=== PATIENT | male | born 1965 | race Caucasian/White ===

== ENCOUNTER 2017-03-25 15:18 | Inpatient (IN) | payer OTHER ==
[~2017-03-25] VITALS: Ht 167.6 cm; Wt 103.0 kg
[2017-03-25 15:31] VITALS: BP 142/76; PULSE 123; RESP 26; TEMP 100.9; O2SAT 98
--- NOTE | 2017-03-25 15:51 | PD ---
HPI Chief Complaint: Alcohol/Drug Intoxication Time Seen by Provider: 15:50 Travel History International Travel<30 days: No Contact w/Intl Traveler<30days: No Traveled to known affect area: No History of Present Illness HPI 52-year-old male with history of narcotic and alcohol abuse presents emergency department after not being able to get into [facility]. Patient is noted to have a fever of 100.9 and tachycardia in triage. Patient states he has been binging on pills being crushed and snorting them, and alcohol. Patient is desiring to get clean from both narcotics and alcohol as he is done in the past. Patient has generalized fever, chills, body aches, nausea, and vomiting as well as diarrhea. The symptoms have been present for the past 2 days. Patient denies IV drug use. Patient has no known drug allergies. [facility] Past Medical History Cardiovascular Problems: Yes Diabetes: Yes Social History Alcohol Use: Yes Tobacco Use: Yes Substance Use: Yes Allergies-Medications (Allergen,Severity, Reaction): Coded Allergies: No Known Allergies (Verified Allergy, Unknown, 03/25/17) Review of Systems Except as stated in HPI: all other systems reviewed are Neg General / Constitutional: Positive: Fever, Chills Eyes: No: Visual changes HENT: Positive: Headaches, Lightheadedness, Rhinitis, Rhinorrhea, Congestion, Nosebleed, No: Vertigo, Sore Throat, Neck Stiffness, Neck Pain, Dental Difficulties, Earache Cardiovascular: No: Chest Pain or Discomfort Respiratory: Positive: Cough, No: Shortness of Breath, Wheezing, Sneezing Gastrointestinal: Positive: Nausea, Vomiting, Diarrhea, Abdominal Pain, Other Genitourinary: Positive: Decreased Urinary Output, No: Urgency, Frequency, Dysuria Musculoskeletal: Positive: Myalgias, No: Arthralgias, Limited ROM, Pain Skin: No Rash Neurologic: No: Weakness Psychiatric: No: Depression Endocrine: No: Polydipsia Hematologic/Lymphatic: No: Easy Bruising Physical Exam Narrative GENERAL: Patient is disheveled and dirty and in moderate distress. He appears ill. SKIN: Warm. Decreased pallor. Mild diaphoresis. Decreased turgor without tenting. HEAD: Atraumatic. Normocephalic. EYES: Pupils equal and round. No scleral icterus. No injection or drainage. ENT: No nasal bleeding or discharge. Mucous membranes pink and moist. Pharynx is clear. Airways patent. TMs are clear bilaterally. No significant sinus tenderness. Patient has dried nosebleed in the left nares. NECK: Trachea midline. Supple and nontender without significant lymphadenopathy. CARDIOVASCULAR: Tachycardic rate and rhythm. RESPIRATORY: No accessory muscle use. Clear to auscultation. Breath sounds equal bilaterally. GASTROINTESTINAL: Abdomen soft, moderate generalized tenderness, nondistended. Hepatic and splenic margins not palpable. No CVA tenderness. Hyperactive bowel sounds throughout all quadrants. There is no point tenderness or rebound. MUSCULOSKELETAL: Extremities without clubbing, cyanosis, or edema. No obvious deformities. NEUROLOGICAL: Awake and alert. No obvious cranial nerve deficits. Motor grossly within normal limits. Five out of 5 muscle strength in the arms and legs. Normal speech. PSYCHIATRIC: Appropriate mood and affect; insight and judgment normal. Data Data Last Documented VS Vital Signs Date Time Temp Pulse Resp B/P (MAP) Pulse Ox O2 Delivery O2 Flow Rate FiO2 03/25/17 16:15 Room Air 03/25/17 15:31 100.9 123 26 142/76 (98) 98 Orders Orders Sepsis Workup Initiated (03/25/17 ) Electrocardiogram (03/25/17 15:54) Complete Blood Count With Diff (03/25/17 15:54) Comprehensive Metabolic Panel (03/25/17 15:54) Act Partial Throm Time (Ptt) (03/25/17 15:54) Lactic Acid Sepsis Protocol (03/25/17 15:54) Magnesium (Mg) (03/25/17 15:54) Phosphorus (Po4) (03/25/17 15:54) Lipase (03/25/17 15:54) Ckmb (Isoenzyme) Profile (03/25/17 15:54) Troponin I (03/25/17 15:54) Urinalysis - C+S If Indicated (03/25/17 15:54) Influenzae A/B Antigen (03/25/17 15:54) Blood Culture (03/25/17 15:54) Chest, Single Ap (03/25/17 15:54) Blood Glucose (03/25/17 15:54) Ecg Monitoring (03/25/17 15:54) Iv Access Insert/Monitor (03/25/17 15:54) Oximetry (03/25/17 15:54) Oxygen Administration (03/25/17 15:54) Acetaminophen (Tylenol) (03/25/17 16:00) Ondansetron Inj (Zofran Inj) (03/25/17 16:00) Sodium Chlor 0.9% 1000 Ml Inj (Ns 1000 M (03/25/17 15:54) Sodium Chlor 0.9% 1000 Ml Inj (Ns 1000 M (03/25/17 15:54) Lorazepam Inj (Ativan Inj) (03/25/17 16:15) Lorazepam Inj (Ativan Inj) (03/25/17 16:45) Oseltamivir (Tamiflu) (03/25/17 17:00) Potassium Chlor 20 Meq Premix (Kcl 20 Me (03/25/17 17:15) Sodium Chlor 0.9% 1000 Ml Inj (Ns 1000 M (03/25/17 17:15) Thyroid Stimulating Hormone (03/25/17 17:13) Psych Screen (03/25/17 17:13) Drug Screen, Random Urine (03/25/17 17:13) Alcohol (Ethanol) (03/25/17 17:13) Piperacil-Tazo 4.5 Gm Premix (Zosyn 4.5 (03/25/17 17:30) Vancomycin Inj (Vancomycin Inj) (03/25/17 17:30) Admit Order (Ed Use Only) (03/25/17 17:36) Labs Laboratory Tests Test 03/25/17 16:20 White Blood Count 4.8 TH/MM3 Red Blood Count 4.82 MIL/MM3 Hemoglobin 14.4 GM/DL Hematocrit 41.2 % Mean Corpuscular Volume 85.5 FL Mean Corpuscular Hemoglobin 29.8 PG Mean Corpuscular Hemoglobin Concent 34.8 % Red Cell Distribution Width 13.8 % Platelet Count 188 TH/MM3 Mean Platelet Volume 7.3 FL Neutrophils (%) (Auto) 65.0 % Lymphocytes (%) (Auto) 19.5 % Monocytes (%) (Auto) 14.7 % Eosinophils (%) (Auto) 0.2 % Basophils (%) (Auto) 0.6 % Neutrophils # (Auto) 3.1 TH/MM3 Lymphocytes # (Auto) 0.9 TH/MM3 Monocytes # (Auto) 0.7 TH/MM3 Eosinophils # (Auto) 0.0 TH/MM3 Basophils # (Auto) 0.0 TH/MM3 CBC Comment DIFF FINAL Differential Comment Activated Partial Thromboplast Time 24.6 SEC Urine Color YELLOW Urine Turbidity CLEAR Urine pH 6.0 Urine Specific [place] 1.017 Urine Protein 30 mg/dL Urine Glucose (UA) 150 mg/dL Urine Ketones 10 mg/dL Urine Occult Blood NEG Urine Nitrite NEG Urine Bilirubin NEG Urine Urobilinogen LESS THAN 2.0 MG/DL Urine Leukocyte Esterase NEG Urine WBC 2 /hpf Urine Squamous Epithelial Cells <1 /hpf Urine Hyaline Casts 1 /lpf Urine Mucus MOD /lpf Microscopic Urinalysis Comment CATH-CULT NOT IND Blood Urea Nitrogen 8 MG/DL Creatinine 0.90 MG/DL Random Glucose 183 MG/DL Total Protein 8.3 GM/DL Albumin 3.5 GM/DL Calcium Level 8.8 MG/DL Phosphorus Level 2.5 MG/DL Magnesium Level 1.8 MG/DL Alkaline Phosphatase 118 U/L Aspartate Amino Transf (AST/SGOT) 91 U/L Alanine Aminotransferase (ALT/SGPT) 106 U/L Total Bilirubin 0.2 MG/DL Sodium Level 137 MEQ/L Potassium Level 2.8 MEQ/L Chloride Level 99 MEQ/L Carbon Dioxide Level 23.1 MEQ/L Anion Gap 15 MEQ/L Estimat Glomerular Filtration Rate 89 ML/MIN Lactic Acid Level 4.6 mmol/L Total Creatine Kinase 85 U/L Troponin I LESS THAN 0.02 NG/ML Lipase 213 U/L [facility] Medical Decision Making Medical Screen Exam Complete: Yes Emergency Medical Condition: Yes Medical Record Reviewed: Yes Differential Diagnosis Narcotic abuse. Narcotic withdrawal. Alcohol abuse. Alcohol withdrawal. Influenza. Nausea and vomiting, diarrhea. Fever. Sepsis. Narrative Course Based on my exam the sepsis protocol was initiated. Labs ordered per protocol and 2 L of normal saline boluses given. Patient is given Zofran 4 mg IV, Lorazepam 1 mg IV, and 650 mg acetaminophen p.o. Blood cultures are ordered 2. EKG and chest x-ray or ordered as well. Urine and urine drug screen is ordered. Serum alcohol level is ordered as well. Patient is positive for influenza B. Labs showed no significant leukocytosis however monocytes are elevated. Chemistries significant for potassium of 2.8, random glucose 183, lactic acid 4.6, AST is 91, ALT is 106, alk phos 118, troponin is less than 0.02. Total protein 8.3, lipase is normal at 213. Urinalysis shows no sign of infection. Patient is given an additional 1 L of normal saline bolus as well as Tamiflu 75 mg p.o. Call was placed to the hospitalist for admission. Sepsis Criteria SIRS Criteria (2 or more): Temp > 100.9 or < 96.8, Heart rate over 90 Sepsis Criteria (SIRS+source): Infect source susp/known Criteria Outcome: Meets sepsis criteria Diagnosis Primary Impression: Sepsis Qualified Codes: A41.3 - Sepsis due to hemophilus influenzae Additional Impressions: Hypokalemia Diarrhea Qualified Codes: A09 - Infectious gastroenteritis and colitis, unspecified Influenza B Polysubstance abuse Admitting Information Admitting Physician Requests: Admit Condition: Stable Jass Ortiz Mar 25, 2017 15:51
[2017-03-25] MEDS ORDERED: SODIUM CHLOR 0.9% 1000 ML INJ 1,000 ML IV ONE ×2 (15:54→17:15)
[2017-03-25] MEDS ORDERED: SODIUM CHLOR 0.9% 1000 ML INJ 800 ML IV ONE (15:54)
[2017-03-25] MEDS ORDERED: ACETAMINOPHEN 325 MG TAB PO ONE (16:00)
[2017-03-25] MEDS ORDERED: ONDANSETRON HCL 4 MG/2 ML VIAL IV PUSH ONE (16:00)
[2017-03-25] MEDS ORDERED: LORazepam 2 MG/ML VIAL IM ONE (16:15)
--- NOTE | 2017-03-25 16:35 | RADRPT ---
EXAM DATE/TIME: 03/25/2017 16:20 [place] COMPARISON: No previous studies available for comparison. INDICATIONS : Patient states that he is detoxing from pills and has increased blood pressure and heart rate. MEDICAL HISTORY : None. SURGICAL HISTORY : None. ENCOUNTER: Initial ACUITY: 1 day PAIN SCORE: 3/10 LOCATION: Bilateral upper chest FINDINGS: A single view of the chest demonstrates the lungs to be symmetrically aerated without evidence of mas s, infiltrate or effusion. The cardiomediastinal contours are unremarkable. Osseous structures are intact. There are overlying electrocardiogram leads. CONCLUSION: No acute disease. Raphael Pearce MD on March 25, 2017 at 16:32 Board Certified Radiologist. This report was verified electronically.
[2017-03-25 16:42] LABS: AUTOMATED NEUTROPHIL # 3.1 TH/MM3 (1.8-7.7); BASOPHIL % 0.6 % (0.0-2.0); EOSINOPHIL % 0.2 % (0.0-4.0); HEMATOCRIT 41.2 % (39.0-51.0); HEMOGLOBIN 14.4 GM/DL (13.0-17.0); LYMPH % 19.5 % (9.0-44.0); LYMPHOCYTE # 0.9 TH/MM3 (1.0-4.8); MEAN CELL VOLUME 85.5 FL (80.0-100.0); MEAN CORPUSCULAR HEMOGLOBIN 29.8 PG (27.0-34.0); MEAN CORPUSCULAR HGB CONC 34.8 % (32.0-36.0); MEAN PLATELET VOLUME 7.3 FL (7.0-11.0); MONO % 14.7 % (0.0-8.0); MONOCYTE # 0.7 TH/MM3 (0-0.9); PLATELET COUNT 188 TH/MM3 (150-450); RED BLOOD COUNT 4.82 MIL/MM3 (4.50-5.90); RED CELL DISTRIBUTION WIDTH 13.8 % (11.6-17.2); WHITE BLOOD COUNT 4.8 TH/MM3 (4.0-11.0)
[2017-03-25] MEDS ORDERED: LORazepam 2 MG/ML VIAL IV PUSH ONE (16:45)
[2017-03-25 16:48] LABS: BILIRUBIN, URINE NEG (NEG); BLOOD, URINE NEG (NEG); GLUCOSE,URINE 150 mg/dL (NEG); HYALINE CAST, URINE 1 /lpf (RARE); KETONE, URINE 10 mg/dL (NEG); MUCUS URINE MOD /lpf (OCC); NITRITE,URINE NEG (NEG); SQUAMOUS EPITHELIAL CELL URINE <1 /hpf (0-5); URINE COLOR YELLOW (YELLW/STRAW); URINE LEUKOCYTE ESTERASE NEG (NEG)
[2017-03-25] MEDS ORDERED: OSELTAMIVIR PHOSPHATE 75 MG CAP PO ONE (17:00)
[2017-03-25 17:03] LABS: LACTIC ACID SEPSIS PROTOCOL 4.6 mmol/L (0.4-2.0)
[2017-03-25 17:04] LABS: ALBUMIN 3.5 GM/DL (3.4-5.0); ALKALINE PHOSPHATASE 118 U/L (45-117); ALT (GPT) 106 U/L (12-78); AST (GOT) 91 U/L (15-37); BICARBONATE 23.1 MEQ/L (21.0-32.0); BLOOD UREA NITROGEN 8 MG/DL (7-18); CALCIUM 8.8 MG/DL (8.5-10.1); CHLORIDE 99 MEQ/L (98-107); GLOMERULAR FILTRATION RATE 89 ML/MIN (>89); GLUCOSE,RANDOM 183 MG/DL (74-106); MAGNESIUM 1.8 MG/DL (1.5-2.5); PHOSPHORUS 2.5 MG/DL (2.5-4.9); SODIUM (NA) 137 MEQ/L (136-145); TOTAL BILIRUBIN ADULT 0.2 MG/DL (0.2-1.0); TOTAL PROTEIN 8.3 GM/DL (6.4-8.2); TROPONIN I LESS THAN 0.02 NG/ML (0.02-0.05)
[2017-03-25] MEDS ORDERED: POTASSIUM CHLOR 20 MEQ PREMIX 100 ML IV ONE (17:15)
[2017-03-25] MEDS ORDERED: VANCOMYCIN INJ 1,000 MG in SODIUM CHLOR 0.9% 250 ML INJ 250 ML IV ONE (17:30)
[2017-03-25] MEDS ORDERED: PIPERACIL-TAZO 4.5 GM PREMIX 100 ML IV ONE (17:30)
[2017-03-25] MEDS ORDERED: SODIUM CHLOR 0.9% 1000 ML INJ 1,000 ML IV SCH (18:00)
[2017-03-25] MEDS ORDERED: SODIUM CHLORIDE 0.9% FLUSH 10 ML FLUSH IV FLUSH PRN (18:00)
[2017-03-25] MEDS ORDERED: FLUMAZENIL 0.5 MG/5 ML VIAL IV PUSH PRN (18:00)
[2017-03-25] MEDS ORDERED: NALOXONE HCL 0.4 MG/ML AMP IV PUSH PRN (18:00)
[2017-03-25] MEDS ORDERED: RESP: ALBUTEROL 2.5 MG/IPRATROPIUM 0.5 MG NEB (PRN) NEB (18:00)
[2017-03-25] MEDS ORDERED: ACETAMINOPHEN 325 MG TAB PO PRN (18:00)
[2017-03-25] MEDS ORDERED: ONDANSETRON HCL 4 MG/2 ML VIAL IVP PRN (18:00)
[2017-03-25] MEDS ORDERED: LORazepam 2 MG/ML VIAL IV PUSH PRN ×3 (18:00)
[2017-03-25] MEDS ORDERED: LORazepam 2 MG TAB PO PRN (18:00)
[2017-03-25] MEDS ORDERED: GLUCAGON 1 MG/ML VIAL OTHER PRN (18:15)
[2017-03-25] MEDS ORDERED: DEXTROSE 50% IN WATER 50 ML VIAL(D50) IV PUSH PRN (18:15)
--- NOTE | 2017-03-25 18:18 | HHI.HP ---
HPI Service [facility] Primary Care Physician No Primary Care Physician Admission Diagnosis Sepsis/Hypokalemia/dehydration/polysubstance abuse Diagnoses: (1) Sepsis (2) Influenza B (3) Polysubstance abuse (4) Hypokalemia Travel History International Travel<30 Days: No Contact w/Intl Traveler <30 Da: No Traveled to Known Affected Are: No Sepsis Criteria SIRS Criteria (2 or more): Temp > 100.9 or < 96.8, Heart rate over 90 Sepsis Criteria (SIRS+source): Infect source susp/known Severe Sepsis (+one): Lactate >2 Criteria Outcome: Meets sepsis criteria History of Present Illness 52-year-old male with a medical history of diabetes type 2, hypertension, polysubstance abuse presented to the ED for evaluation of febrile illness, substance withdrawal. Patient states, he went to [facility] to seek help secondary to history of narcotics and alcohol abuse however he was not able to get into the center. When he presented, patient was febrile and tachycardic. Flu B antigen was positive. He states he's been having some dry heaves over the past 2 days. Patient also reported chills and generalized body aches along with nausea and vomiting. Patient also reports that he use 6- 8 OxyContin 10 mg daily, which he buys from the street. Chest x-ray did not reveal any cardiac pulmonary disease. Review of Systems Except as stated in HPI: all other systems reviewed are Neg Past Family Social History Past Medical History Diabetes type 2 Hypertension Polysubstance abuse Alcohol abuse Past Surgical History No previous surgery Reported Medications Metformin 1000 twice a day Lisinopril 10 mg daily Norvasc 10 mg daily Allergies: Coded Allergies: No Known Allergies (Verified Allergy, Unknown, 03/25/17) Family History Father had lung cancer Social History She'll report daily alcohol use of 6 beers denies tobacco or illicit drug intake Physical Exam Vital Signs Vital Signs Date Time Temp Pulse Resp B/P (MAP) Pulse Ox O2 Delivery O2 Flow Rate FiO2 03/25/17 16:15 Room Air 03/25/17 15:31 100.9 123 26 142/76 (98) 98 Room Air Physical Exam GENERAL: This is a well-nourished, well-developed patient, in no apparent distress. SKIN: No rashes, ecchymoses or lesions. Cool and dry. HEAD: Atraumatic. Normocephalic. No temporal or scalp tenderness. EYES: Pupils equal round and reactive. Extraocular motions intact. No scleral icterus. No injection or drainage. ENT: Nose without bleeding, purulent drainage or septal hematoma. Throat without erythema, tonsillar hypertrophy or exudate. Uvula midline. Airway patent. NECK: Trachea midline. No JVD or lymphadenopathy. Supple, nontender, no meningeal signs. CARDIOVASCULAR: Regular rate and rhythm without murmurs, gallops, or rubs. RESPIRATORY: Clear to auscultation. Breath sounds equal bilaterally. No wheezes , rales, or rhonchi. GASTROINTESTINAL: Abdomen soft, non-tender, nondistended. No hepato-splenomegaly , or palpable masses. No guarding. MUSCULOSKELETAL: Extremities without clubbing, cyanosis, or edema. No joint tenderness, effusion, or edema noted. No calf tenderness. Negative Homans sign bilaterally. NEUROLOGICAL: Awake and alert. Cranial nerves II through XII intact. Motor and sensory grossly within normal limits. Five out of 5 muscle strength in all muscle groups. Normal speech. Laboratory Laboratory Tests Test 03/25/17 16:20 White Blood Count 4.8 Red Blood Count 4.82 Hemoglobin 14.4 Hematocrit 41.2 Mean Corpuscular Volume 85.5 Mean Corpuscular Hemoglobin 29.8 Mean Corpuscular Hemoglobin Concent 34.8 Red Cell Distribution Width 13.8 Platelet Count 188 Mean Platelet Volume 7.3 Neutrophils (%) (Auto) 65.0 Lymphocytes (%) (Auto) 19.5 Monocytes (%) (Auto) 14.7 Eosinophils (%) (Auto) 0.2 Basophils (%) (Auto) 0.6 Neutrophils # (Auto) 3.1 Lymphocytes # (Auto) 0.9 Monocytes # (Auto) 0.7 Eosinophils # (Auto) 0.0 Basophils # (Auto) 0.0 CBC Comment DIFF FINAL Differential Comment Activated Partial Thromboplast Time 24.6 Urine Color YELLOW Urine Turbidity CLEAR Urine pH 6.0 Urine Specific [place] 1.017 Urine Protein 30 Urine Glucose (UA) 150 Urine Ketones 10 Urine Occult Blood NEG Urine Nitrite NEG Urine Bilirubin NEG Urine Urobilinogen LESS THAN 2.0 Urine Leukocyte Esterase NEG Urine WBC 2 Urine Squamous Epithelial Cells <1 Urine Hyaline Casts 1 Urine Mucus MOD Microscopic Urinalysis Comment CATH-CULT NOT IND Blood Urea Nitrogen 8 Creatinine 0.90 Random Glucose 183 Total Protein 8.3 Albumin 3.5 Calcium Level 8.8 Phosphorus Level 2.5 Magnesium Level 1.8 Alkaline Phosphatase 118 Aspartate Amino Transf (AST/SGOT) 91 Alanine Aminotransferase (ALT/SGPT) 106 Total Bilirubin 0.2 Sodium Level 137 Potassium Level 2.8 Chloride Level 99 Carbon Dioxide Level 23.1 Anion Gap 15 Estimat Glomerular Filtration Rate 89 Lactic Acid Level 4.6 Total Creatine Kinase 85 Troponin I LESS THAN 0.02 Lipase 213 Date/Time Source Procedure Growth Status 03/25/17 16:20 Blood Peripheral Aerobic Blood Culture Pending Received 03/25/17 16:20 Blood Peripheral Anaerobic Blood Culture Pending Received 03/25/17 16:20 Nasal Washing Influenza Types A,B Antigen (YASIR) - Final Positive For Flu B Antigen Complete Result Diagram: 03/25/17 1620 03/25/17 1620 Imaging Last Impressions Chest X-Ray 03/25/17 1554 Signed Impressions: Service Date/Time: Saturday, March 25, 2017 16:20 - CONCLUSION: No acute disease. Raphael Pearce MD Septic Shock Reassessment Septic shock perfusion: reassessment completed Caprini VTE Risk Assessment Caprini VTE Risk Assessment: No/Low Risk (score <= 1) Caprini Risk Assessment Model Point Value = 1 Point Value = 2 Point Value = 3 Point Value = 5 Age 41-60 Minor surgery BMI > 25 kg/m2 Swollen legs Varicose veins or History of unexplained or recurrent spontaneous Oral contraceptives or hormone replacement Sepsis (< 1 month) Serious lung disease, including pneumonia (< 1 month) Abnormal pulmonary function Acute myocardial infarction Congestive heart failure (< 1 month) History of inflammatory bowel disease Medical patient at bed rest Age 61-74 Arthroscopic surgery Major open surgery (> 45 min) Laparoscopic surgery (> 45 min) Malignancy Confined to bed (> 72 hours) Immobilizing plaster cast Central venous access Age >= 75 History of VTE Family history of VTE Factor V Leiden Prothrombin [id number] Lupus anticoagulant Anticardiolipin antibodies Elevated serum homocysteine Heparin-induced thrombocytopenia Other congenital or acquired thrombophilia Stroke (< 1 month) Elective arthroplasty Hip, pelvis, or leg fracture Acute spinal cord injury (< 1 month) Prophylaxis Regimen Total Risk Factor Score Risk Level Prophylaxis Regimen 0-1 Low Early ambulation 2 Moderate Order ONE of the following: *Sequential Compression Device (SCD) *Heparin 5000 units SQ BID 3-4 Higher Order ONE of the following medications: *Heparin 5000 units SQ TID *Enoxaparin/Lovenox 40 mg SQ daily (WT < 150 kg, CrCl > 30 mL/min) *Enoxaparin/Lovenox 30 mg SQ daily (WT < 150 kg, CrCl > 10-29 mL/min) *Enoxaparin/Lovenox 30 mg SQ BID (WT < 150 kg, CrCl > 30 mL/min) AND/OR *Sequential Compression Device (SCD) 5 or more Highest Order ONE of the following medications: *Heparin 5000 units SQ TID (Preferred with Epidurals) *Enoxaparin/Lovenox 40 mg SQ daily (WT < 150 kg, CrCl > 30 mL/min) *Enoxaparin/Lovenox 30 mg SQ daily (WT < 150 kg, CrCl > 10-29 mL/min) *Enoxaparin/Lovenox 30 mg SQ BID (WT < 150 kg, CrCl > 30 mL/min) AND *Sequential Compression Device (SCD) Assessment and Plan Problem List: (1) Sepsis ICD Code: A41.9 - Sepsis, unspecified organism Status: Acute (2) Influenza B ICD Code: J10.1 - Influenza due to other identified influenza virus with other respiratory manifestations Status: Acute (3) Benign hypertension ICD Code: I10 - Essential (primary) hypertension (4) Polysubstance abuse ICD Code: F19.10 - Other psychoactive substance abuse, uncomplicated Status: Acute (5) Hypokalemia ICD Code: E87.6 - Hypokalemia Status: Acute Assessment and Plan 52-year-old man with Severe sepsis: Temp > 100.9 or < 96.8, Heart rate over 90; Lactate >2; Infect source susp/known (Influenza B) Status post vancomycin and Zosyn as well as Tamiflu 1 in ED pending culture report Influenza B Continue with Tamiflu 75 milligrams twice a day 5 days Isolation Lactic acidosis from Above infectious process Gentle IV fluid hydration and repeat lactic acid Polysubstance abuse Consult psychiatry Alcohol abuse/withdrawal Alcohol counseling cessation provided Start CIWA protocol, rally pack and Librium when necessary Transaminitis Secondary to alcohol abuse, however will check hepatitis profile Hypokalemia Give potassium 80 mEq 1 now Monitor electrolyte Diabetes type 2 Labile blood glucose Start insulin sliding scale and resume metformin Check hemoglobin A1c Hypertension Resume Norvasc and lisinopril Clonidine when necessary DVT prophylaxis: Bilateral SCDs Code Status Full code Discussed Condition With Patient, ED PA Physician Certification 2 Midnight Certification Type: Admission for Inpatient Services Order for Inpatient Services The services are ordered in accordance with Medicare regulations or non- Medicare payer requirements, as applicable. In the case of services not specified as inpatient-only, they are appropriately provided as inpatient services in accordance with the 2-midnight benchmark. Estimated LOS (days): 2 days is the estimated time the patient will need to remain in the hospital, assuming treatment plan goals are met and no additional complications. Post-Hospital Plan: Not yet determined Problem Qualifiers (1) Sepsis: Qualified Codes: A41.3 - Sepsis due to hemophilus influenzae Sim Serna MD Mar 25, 2017 18:18
[2017-03-25 20:00] VITALS: BP 174/92; PULSE 88; RESP 18; TEMP 98.4; O2SAT 96
[2017-03-25] MEDS: POTASSIUM CHLORIDE 20 MEQ CONTROLLED RELEASE TAB PO SCH ×2 (20:04→22:00)
[2017-03-25] MEDS: INSULIN ASPART SUPPLEMENTAL SCALE SQ SCH (20:06)
[2017-03-25] MEDS: SODIUM CHLORIDE 0.9% FLUSH 10 ML FLUSH IV FLUSH SCH (20:13)
[2017-03-25] MEDS: TEMAZEPAM 15 MG CAP PO PRN (20:41)
[2017-03-25] MEDS: cloNIDine HCL 0.1 MG TAB PO PRN (20:45)
[2017-03-25] MEDS: LORazepam 2 MG/ML VIAL IV PUSH PRN (23:40)
[2017-03-26] VITALS: BP 148/82; PULSE 72; RESP 18; TEMP 98.3; O2SAT 96
[2017-03-26] MEDS: LORazepam 2 MG/ML VIAL IV PUSH PRN (03:57)
[2017-03-26 04:00] VITALS: BP 181/94; PULSE 72; RESP 20; TEMP 98.7; O2SAT 96
[2017-03-26] MEDS: cloNIDine HCL 0.1 MG TAB PO PRN (06:18)
[2017-03-26 07:22] LABS: AUTOMATED NEUTROPHIL # 3.1 TH/MM3 (1.8-7.7); BASOPHIL % 0.4 % (0.0-2.0); EOSINOPHIL % 0.3 % (0.0-4.0); HEMATOCRIT 37.7 % (39.0-51.0); HEMOGLOBIN 13.1 GM/DL (13.0-17.0); LYMPHOCYTE # 0.9 TH/MM3 (1.0-4.8); MEAN CELL VOLUME 86.6 FL (80.0-100.0); MEAN CORPUSCULAR HGB CONC 34.6 % (32.0-36.0); MEAN PLATELET VOLUME 7.5 FL (7.0-11.0); MONO % 12.9 % (0.0-8.0); MONOCYTE # 0.6 TH/MM3 (0-0.9); NEUT % 66.4 % (16.0-70.0); PLATELET COUNT 158 TH/MM3 (150-450); RED BLOOD COUNT 4.35 MIL/MM3 (4.50-5.90); RED CELL DISTRIBUTION WIDTH 13.4 % (11.6-17.2); WHITE BLOOD COUNT 4.6 TH/MM3 (4.0-11.0)
[2017-03-26 07:31] LABS: ALBUMIN 3.1 GM/DL (3.4-5.0); ALKALINE PHOSPHATASE 103 U/L (45-117); ALT (GPT) 85 U/L (12-78); AST (GOT) 62 U/L (15-37); BLOOD UREA NITROGEN 8 MG/DL (7-18); CALCIUM 7.9 MG/DL (8.5-10.1); CHLORIDE 104 MEQ/L (98-107); CREATININE 0.84 MG/DL (0.60-1.30); GLOMERULAR FILTRATION RATE 97 ML/MIN (>89); GLUCOSE,RANDOM 147 MG/DL (74-106); SODIUM (NA) 140 MEQ/L (136-145); TOTAL BILIRUBIN ADULT 0.2 MG/DL (0.2-1.0); TOTAL PROTEIN 7.1 GM/DL (6.4-8.2)
[2017-03-26 08:00] VITALS: BP 178/99; PULSE 67; RESP 18; TEMP 98.9; O2SAT 96
[2017-03-26] MEDS: THIAMINE HCL 100 MG TAB PO SCH (08:56)
[2017-03-26] MEDS: metFORMIN HCL 850 MG TAB PO SCH ×2 (08:56→17:38)
[2017-03-26] MEDS: FOLIC ACID 1 MG TAB PO SCH (08:57)
[2017-03-26] MEDS: SODIUM CHLORIDE 0.9% FLUSH 10 ML FLUSH IV FLUSH SCH ×2 (08:57→20:53)
[2017-03-26] MEDS: OSELTAMIVIR PHOSPHATE 75 MG CAP PO SCH ×2 (08:57→20:52)
[2017-03-26] MEDS ORDERED: LISINOPRIL 10 MG TAB PO SCH (09:00)
[2017-03-26] MEDS: INSULIN ASPART SUPPLEMENTAL SCALE SQ SCH ×4 (09:08→21:08)
[2017-03-26] MEDS: LORazepam 1 MG TAB PO PRN ×4 (09:10→21:15)
--- NOTE | 2017-03-26 09:59 | HHI.PR ---
Subjective Remarks Follow-up sepsis/influenza B 03/26/17-patient seen and examined, complains of back pain and reports multiple diarrheal episode. BP slightly up however patient afebrile Objective Vitals Vital Signs Date Time Temp Pulse Resp B/P (MAP) Pulse Ox O2 Delivery O2 Flow Rate FiO2 03/26/17 08:00 98.9 67 18 178/99 (125) 96 03/26/17 04:00 98.7 72 20 181/94 (123) 96 03/26/17 00:00 98.3 72 18 148/82 (104) 96 03/25/17 20:00 98.4 88 18 174/92 (119) 96 03/25/17 19:00 03/25/17 16:15 Room Air 03/25/17 15:31 100.9 123 26 142/76 (98) 98 Room Air I/O 03/25/17 03/25/17 03/25/17 03/26/17 03/26/17 03/26/17 07:00 15:00 23:00 07:00 15:00 23:00 Intake Total 1800 ml Output Total 1700 ml Balance 1800 ml -1700 ml Intake IV Total 1800 ml Output Urine Total 1700 ml Result Diagram: 03/26/17 0630 03/26/17 0630 Imaging Last Impressions Chest X-Ray 03/25/17 1554 Signed Impressions: Service Date/Time: Saturday, March 25, 2017 16:20 - CONCLUSION: No acute disease. Raphael Pearce MD Objective Remarks GENERAL: NAD SKIN: Warm and dry. HEAD: Normocephalic. EYES: No scleral icterus. No injection or drainage. NECK: Supple, trachea midline. No JVD or lymphadenopathy. CARDIOVASCULAR: Regular rate and rhythm without murmurs, gallops, or rubs. RESPIRATORY: Breath sounds equal bilaterally. No accessory muscle use. GASTROINTESTINAL: Abdomen soft, non-tender, nondistended. MUSCULOSKELETAL: No cyanosis, or edema. BACK: Nontender without obvious deformity. No CVA tenderness. A/P Problem List: (1) Sepsis ICD Code: A41.9 - Sepsis, unspecified organism Status: Acute (2) Influenza B ICD Code: J10.1 - Influenza due to other identified influenza virus with other respiratory manifestations Status: Acute (3) Benign hypertension ICD Code: I10 - Essential (primary) hypertension (4) Polysubstance abuse ICD Code: F19.10 - Other psychoactive substance abuse, uncomplicated Status: Acute (5) Hypokalemia ICD Code: E87.6 - Hypokalemia Status: Acute Assessment and Plan 52-year-old man with Severe sepsis: Resolved Status post vancomycin and Zosyn as well as Tamiflu 1 in ED pending culture report Currently on Tamiflu pending culture report Influenza B Continue with Tamiflu 75 milligrams twice a day 5 days Lactic acidosis from Above infectious process Gentle IV fluid hydration and repeat lactic acid Polysubstance abuse Psychiatry consultation pending Alcohol abuse/withdrawal Alcohol counseling cessation provided Continue CIWA protocol, rally pack and Librium when necessary Transaminitis Secondary to alcohol abuse, however will check hepatitis profile Hypokalemia Resolved status post treatment with potassium 80 mEq 1 Monitor electrolyte Diabetes type 2 Continue insulin sliding scale and metformin Check hemoglobin A1c Hypertension Continue Norvasc and increase lisinopril to 10 mg twice a day Clonidine when necessary Diarrhea This is most secondary to DTs however will check C. difficile PCR DVT prophylaxis: Bilateral SCDs Problem Qualifiers (1) Sepsis: Qualified Codes: A41.3 - Sepsis due to hemophilus influenzae Sim Serna MD Mar 26, 2017 09:59
[2017-03-26 12:00] VITALS: BP 139/91; PULSE 68; RESP 18; TEMP 97.8; O2SAT 99
[2017-03-26 12:37] LABS: HEMOGLOBIN A1C 7.3 % (4.3-6.0)
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
--- NOTE | 2017-03-26 15:26 | EKG ---
Date Performed: 03/25/2017 Time Performed: 17:21:53 PTAGE: 52 years EKG: SINUS TACHYCARDIA NONSPECIFIC ST & T-WAVE ABNORMALITY ABNORMAL RHYTHM ECG NO PREVIOUS TRACING DOCTOR: Peter Bowman Interpretating Date/Time 03/28/2017 06:52:02
[2017-03-26 16:00] VITALS: BP 136/92; PULSE 71; RESP 18; TEMP 98.1; O2SAT 96
[2017-03-26 20:32] VITALS: BP 167/100; PULSE 87; RESP 19; TEMP 98.4; O2SAT 97
[2017-03-26] MEDS: LISINOPRIL 10 MG TAB PO SCH (20:52)
[2017-03-26] MEDS: TEMAZEPAM 15 MG CAP PO PRN (20:54)
[2017-03-26] MEDS: ACETAMINOPHEN 325 MG TAB PO PRN (20:54)
[2017-03-27 00:23] VITALS: BP 170/80; PULSE 58; RESP 17; TEMP 99; O2SAT 98
[2017-03-27] MEDS: cloNIDine HCL 0.1 MG TAB PO PRN (01:19)
[2017-03-27 04:52] VITALS: BP 148/83; PULSE 64; RESP 17; TEMP 97.8; O2SAT 98
[2017-03-27] MEDS: LORazepam 1 MG TAB PO PRN (07:31)
[2017-03-27 08:01] VITALS: BP 169/102; PULSE 72; RESP 20; TEMP 98.1; O2SAT 99
[2017-03-27] MEDS: INSULIN ASPART SUPPLEMENTAL SCALE SQ SCH ×2 (08:42→12:00)
[2017-03-27] MEDS: OSELTAMIVIR PHOSPHATE 75 MG CAP PO SCH (08:43)
[2017-03-27] MEDS: ACETAMINOPHEN 325 MG TAB PO PRN (08:43)
[2017-03-27] MEDS: metFORMIN HCL 850 MG TAB PO SCH (08:44)
[2017-03-27] MEDS: FOLIC ACID 1 MG TAB PO SCH (08:44)
[2017-03-27] MEDS: LISINOPRIL 10 MG TAB PO SCH (08:44)
[2017-03-27] MEDS: THIAMINE HCL 100 MG TAB PO SCH (08:44)
[2017-03-27] MEDS: SODIUM CHLORIDE 0.9% FLUSH 10 ML FLUSH IV FLUSH SCH (08:45)
--- NOTE | 2017-03-27 10:00 | HHI.PR ---
Subjective Remarks Follow-up sepsis/influenza B 03/26/17-patient seen and examined, complains of back pain and reports multiple diarrheal episode. BP slightly up however patient afebrile 03/27/17-patient seen and examined, reports improvement of diarrheal episode, requesting if he can stay 1 more day in hospital. Some improvement of shortness of breath Objective Vitals Vital Signs Date Time Temp Pulse Resp B/P (MAP) Pulse Ox O2 Delivery O2 Flow Rate FiO2 03/27/17 08:01 98.1 72 20 169/102 (124) 99 03/27/17 04:52 97.8 64 17 148/83 (104) 98 03/27/17 00:23 99.0 58 17 170/80 (110) 98 03/26/17 20:32 98.4 87 19 167/100 (122) 97 03/26/17 16:00 98.1 71 18 136/92 (107) 96 03/26/17 12:00 97.8 68 18 139/91 (107) 99 I/O 03/26/17 03/26/17 03/26/17 03/27/17 03/27/17 03/27/17 07:00 15:00 23:00 07:00 15:00 23:00 Intake Total 240 ml Output Total 1700 ml Balance -1700 ml 240 ml Intake Oral 240 ml Output Urine Total 1700 ml # Voids 3 # Bowel Movements 3 Result Diagram: 03/26/17 0630 03/26/17 0630 Imaging Last Impressions Chest X-Ray 03/25/17 1554 Signed Impressions: Service Date/Time: Saturday, March 25, 2017 16:20 - CONCLUSION: No acute disease. Raphael Pearce MD Objective Remarks GENERAL: NAD SKIN: Warm and dry. HEAD: Normocephalic. EYES: No scleral icterus. No injection or drainage. NECK: Supple, trachea midline. No JVD or lymphadenopathy. CARDIOVASCULAR: Regular rate and rhythm without murmurs, gallops, or rubs. RESPIRATORY: Breath sounds equal bilaterally. No accessory muscle use. GASTROINTESTINAL: Abdomen soft, non-tender, nondistended. MUSCULOSKELETAL: No cyanosis, or edema. BACK: Nontender without obvious deformity. No CVA tenderness. Procedures None A/P Problem List: (1) Sepsis ICD Code: A41.9 - Sepsis, unspecified organism Status: Resolved (2) Influenza B ICD Code: J10.1 - Influenza due to other identified influenza virus with other respiratory manifestations Status: Acute (3) Benign hypertension ICD Code: I10 - Essential (primary) hypertension (4) Polysubstance abuse ICD Code: F19.10 - Other psychoactive substance abuse, uncomplicated Status: Acute (5) Hypokalemia ICD Code: E87.6 - Hypokalemia Status: Acute Assessment and Plan 52-year-old man with Severe sepsis: Resolved Status post vancomycin and Zosyn as well as Tamiflu 1 in ED pending culture report Currently on Tamiflu pending culture report Influenza B Continue with Tamiflu 75 milligrams twice a day 5 days Lactic acidosis from Above infectious process Gentle IV fluid hydration and repeat lactic acid Polysubstance abuse Appreciate input from psychiatry Alcohol abuse/withdrawal Alcohol counseling cessation provided Continue CIWA protocol, rally pack and Librium when necessary Transaminitis Secondary to alcohol abuse, Hepatitis panel pending Hypokalemia Resolved status post treatment with potassium 80 mEq 1 Monitor electrolyte Diabetes type 2 Continue insulin sliding scale and metformin Hemoglobin A1c 7.3 Hypertension Continue Norvasc and lisinopril 10 mg twice a day Clonidine when necessary Diarrhea This is most secondary to DTs and C. difficile PCR negative DVT prophylaxis: Bilateral SCDs Problem Qualifiers (1) Sepsis: Qualified Codes: A41.3 - Sepsis due to hemophilus influenzae Sim Serna MD Mar 27, 2017 10:00
[2017-03-27] MEDS ORDERED: PRED5PAK PO (10:05)
[2017-03-27] MEDS ORDERED: ALBUAER3 INH (10:05)
[2017-03-27] MEDS ORDERED: THIA100 PO (10:05)
[2017-03-27] MEDS ORDERED: AMLO10 PO (10:05)
[2017-03-27] MEDS ORDERED: OSEL75 PO (10:05)
[2017-03-27] MEDS ORDERED: METF500 PO (10:05)
[2017-03-27] MEDS ORDERED: CHLO10CA5 PO (10:05)
[2017-03-27] MEDS ORDERED: LISI10TA3 PO (10:05)
[2017-03-27] MEDS ORDERED: IPRA17I INH (10:05)
--- NOTE | 2017-03-27 10:09 | HHI.DS ---
Discharge Summary Admission Date Mar 25, 2017 at 17:38 Discharge Date: Mar 27, 2017 Admitting Diagnosis Sepsis/Hypokalemia/dehydration/polysubstance abuse (1) Sepsis ICD Code: A41.9 - Sepsis, unspecified organism Status: Resolved (2) Influenza B ICD Code: J10.1 - Influenza due to other identified influenza virus with other respiratory manifestations Status: Acute (3) Benign hypertension ICD Code: I10 - Essential (primary) hypertension (4) Polysubstance abuse ICD Code: F19.10 - Other psychoactive substance abuse, uncomplicated Status: Acute (5) Hypokalemia ICD Code: E87.6 - Hypokalemia Status: Acute Procedures None Brief History - From Admission 52-year-old male with a medical history of diabetes type 2, hypertension, polysubstance abuse presented to the ED for evaluation of febrile illness, substance withdrawal. Patient states, he went to [facility] to seek help secondary to history of narcotics and alcohol abuse however he was not able to get into the center. When he presented, patient was febrile and tachycardic. Flu B antigen was positive. He states he's been having some dry heaves over the past 2 days. Patient also reported chills and generalized body aches along with nausea and vomiting. Patient also reports that he use 6- 8 OxyContin 10 mg daily, which he buys from the street. Chest x-ray did not reveal any cardiac pulmonary disease. CBC/BMP: 03/26/17 0630 03/26/17 0630 Significant Findings Laboratory Tests Test 03/25/17 16:20 03/25/17 20:18 03/26/17 06:30 03/26/17 11:30 Monocytes (%) (Auto) 14.7 % (0.0-8.0) 12.9 % (0.0-8.0) Lymphocytes # (Auto) 0.9 TH/MM3 (1.0-4.8) 0.9 TH/MM3 (1.0-4.8) Urine Protein 30 mg/dL (NEG-TRACE) Urine Glucose (UA) 150 mg/dL (NEG) Urine Ketones 10 mg/dL (NEG) Urine Mucus MOD /lpf (OCC) Random Glucose 183 MG/DL (74-106) 147 MG/DL (74-106) Total Protein 8.3 GM/DL (6.4-8.2) Alkaline Phosphatase 118 U/L (45-117) Aspartate Amino Transf (AST/SGOT) 91 U/L (15-37) 62 U/L (15-37) Alanine Aminotransferase (ALT/SGPT) 106 U/L (12-78) 85 U/L (12-78) Potassium Level 2.8 MEQ/L (3.5-5.1) Lactic Acid Level 4.6 mmol/L (0.4-2.0) 2.3 mmol/L (0.4-2.0) Troponin I LESS THAN 0.02 NG/ML Ethyl Alcohol Level 16 MG/DL (0-5) Red Blood Count 4.35 MIL/MM3 (4.50-5.90) Hematocrit 37.7 % (39.0-51.0) Albumin 3.1 GM/DL (3.4-5.0) Calcium Level 7.9 MG/DL (8.5-10.1) Hemoglobin A1c 7.3 % (4.3-6.0) Imaging Last Impressions Chest X-Ray 03/25/17 2934 Signed Impressions: Service Date/Time: Saturday, March 25, 2017 16:20 - CONCLUSION: No acute disease. Raphael Pearce MD PE at Discharge GENERAL: NAD SKIN: Warm and dry. HEAD: Normocephalic. EYES: No scleral icterus. No injection or drainage. NECK: Supple, trachea midline. No JVD or lymphadenopathy. CARDIOVASCULAR: Regular rate and rhythm without murmurs, gallops, or rubs. RESPIRATORY: Breath sounds equal bilaterally. No accessory muscle use. GASTROINTESTINAL: Abdomen soft, non-tender, nondistended. MUSCULOSKELETAL: No cyanosis, or edema. BACK: Nontender without obvious deformity. No CVA tenderness. Hospital Course While in hospital, patient was treated for Severe sepsis: Resolved Status post vancomycin and Zosyn as well as Tamiflu 1 in ED Treated with Tamiflu Influenza B Treated with with Tamiflu 75 milligrams twice a day 5 days, which patient will complete outpatient Lactic acidosis from Above infectious process Treated with Gentle IV fluid hydration Polysubstance abuse Appreciate input from psychiatry and there was no indication for patient admission to inpatient psychiatry Alcohol abuse/withdrawal Alcohol counseling cessation provided Treated with CIWA protocol, rally pack and Librium when necessary Transaminitis Secondary to alcohol abuse, Hepatitis panel pending Hypokalemia Resolved status post treatment with potassium 80 mEq 1 Monitor electrolyte Diabetes type 2 Treated with insulin sliding scale and metformin Hemoglobin A1c 7.3 Hypertension Treated with Norvasc and lisinopril 10 mg twice a day Clonidine when necessary Diarrhea This is most secondary to DTs and C. difficile PCR negative DVT prophylaxis: Bilateral SCDs Pt Condition on Discharge: Good Discharge Disposition: Discharge Home Discharge Time: <= 30 minutes Discharge Instructions DIET: Follow Instructions for: Diabetic Diet Activities you can perform: Regular-No Restrictions Follow up Referrals: Behavioral Services PCP Follow-up - 1 Week New Medications: Albuterol 8.5 GM Inh (Proair Hfa 8.5 GM Inh) 90 Mcg/Act Aer 2 PUFF INH Q4-6H PRN for SHORTNESS OF BREATH, #1 INHALER 0 Refills 108 mcg/actuation Ipratropium HFA 12.9 GM Inh (Atrovent HFA 12.9 GM Inh) 17 Mcg/Actuation Aer 2 PUFF INH Q6HR PRN for SHORTNESS OF BREATH, #1 INHALER 0 Refills Prednisone (21) 5 mg tab Dose Pack (Prednisone (21) 5 mg tab Dose Pack) 5 Mg Dspk 5 MG PO DIRECTED for Inflammation, #1 DSPK 0 Refills Amlodipine (Norvasc) 10 Mg Tab 10 MG PO DAILY for Blood Pressure Management, #30 TAB 11 Refills Chlordiazepoxide HCl (Chlordiazepoxide HCl) 10 Mg Capsule 10 MG PO TID PRN for DTs, #6 MG Lisinopril (Lisinopril) 10 Mg Tab 10 MG PO BID for Blood Pressure Management, #60 TAB 11 Refills Metformin (Glucophage) 500 Mg Tab 1000 MG PO BIDPC for Blood Sugar Management, #60 TAB 11 Refills Oseltamivir (Tamiflu) 75 Mg Cap 75 MG PO BID for Infection, #6 CAP Thiamine HCl (Gnp Vitamin B-1) 100 Mg Tab 100 MG PO DAILY for Alcohol Detox, #30 TAB Sim Serna MD Mar 27, 2017 10:09
[2017-03-27] MEDS ORDERED: metFORMIN HCL 500 MG TAB PO SCH (18:00)
[2017-03-28 13:37] LABS: HEPATITIS A AB IGM NEGATIVE (NEGATIVE); HEPATITIS B CORE AB IGM NEGATIVE (NEGATIVE); HEPATITIS B SURFACE ANTIGEN NEGATIVE (NEGATIVE); HEPATITIS C AB IgG NEGATIVE (NEGATIVE)
== END 2017-03-27 14:00 | disposition home or self-care (01) | DRG 872 ==
LOC: NEPD 15:18 → NEDA 17:38 → N05B 18:42
PROVIDERS: ADMIT Hospitalist; ATTEND Hospitalist
DX: A41.89 Other specified sepsis (principal); E87.2 Acidosis; F10.239 Alcohol dependence with withdrawal, unspecified; J10.1 Influenza due to other identified influenza virus with other respiratory manifestations; R65.20 Severe sepsis without septic shock; E87.6 Hypokalemia; I10 Essential (primary) hypertension; E11.9 Type 2 diabetes mellitus without complications; Z79.84 Long term (current) use of oral hypoglycemic drugs; F19.10 Other psychoactive substance abuse, uncomplicated; R74.0 Nonspecific elevation of levels of transaminase and lactic acid dehydrogenase [LDH]; Y90.0 Blood alcohol level of less than 20 mg/100 ml; Z72.0 Tobacco use
CPT/HCPCS: 71045; 80053; 80074; 80307; 81001; 82550; 82948; 83036; 83605; 83690; 83735; 84100; 84443; 84484; 85025; 85730; 87040; 87493; 87804; 93005; 96361; 96374; 96375; J1815; J2060; J2405; J2543; J3370; J3480; J7030; J7050